=== PATIENT | male | born 1970 | race Caucasian/White ===

== ENCOUNTER 2020-02-10 07:55 | Emergency (ER) | payer OTHER ==
[~2020-02-10] VITALS: Ht 182.9 cm; Wt 183.7 kg
[~2020-02-10 07:55] MED LIST: Meclizine Hcl PO
--- OUTSIDE RECORDS SUMMARY | 2020-02-10 07:58 | XMS REPORT ---
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 Allergies, Adverse Reactions, Alerts This patient has no known allergies or adverse reactions. Medications This patient has no known medications. Results Test Description Test Time Test Comments Text Results Atomic Results Result Comments CT BRAIN WO [place] [id number] [place] [id number] Patient Name: EDI NUNEZ MR #: [id number] : 1970 Age/Sex: 46/M Req #: [id number] Adm Physician: Ordered by: EMELYN AKHTAR Report #: [id number] Location: ER Room/Bed: Procedure: [id number] CT/CT BRAIN WO Exam Date: 08/11/17 Exam Time: 1155 REPORT STATUS: Signed Exam: Head CT without contrast History: Dizziness Comparison studies: 05/26/2008. Technique: Axial images were obtained from the skull base to the vertex. Coronal and sagittal images reconstructed from the axial data. Intravenous contrast: None Findings: Scalp: No abnormalities. Bones: No fractures, blastic or lytic lesions. Brain sulci: Appropriate for age. Ventricles: Normal in size. No hydrocephalus. Incidental punctate hyperdensity regional to the foramen of Monro may represent incidental choroidal calcification or small colloid cyst and is unchanged. Extra-axial spaces: No masses, no fluid collection. Parenchyma: No abnormal densities. No masses, acute hemorrhage or acute or chronic cortical vascular insults. Sellar/suprasellar region: No abnormalities. Craniocervical junction: Patent foramen magnum. No Chiari one malformation. IMPRESSION: 1. No acute abnormalities. 2. No changes from the previous head CT of 05/26/2008. Signed by: Dr. Dudley Osorio M.D. on 08/11/2017 12:53 PM Dictated By: DUDLEY OSORIO MD 1253 Transcribed By: MAMI on 08/11/17 1253 COPY TO: EMELYN AKHTAR CT CHEST [address] [place] [address] Patient Name: EDI NUNEZ MR #: [id number] : 1970 Age/Sex: 46/M Req #: [id number] Adm Physician: Ordered by: ANATOLIY OQUENDO MD Report #: [id number] Location: ER Room/Bed: Procedure: [id number] CT/CT CHEST W Exam Date: 08/11/17 Exam Time: 1210 REPORT STATUS: Signed PROCEDURE: CT scan of the chest WITH intravenous contrast, using PE protocol. TECHNIQUE: The chest was scanned utilizing a multidetector helical scanner from the lung apex through the level of the adrenal glands after the IV administration of 150 cc of Isovue 370 with special concentration of the pulmonary arteries. Coronal and sagittal multiplanar reformations were obtained. COMPARISON: None. INDICATIONS: Shor tness of breath FINDINGS: Lines/tubes: None. Lungs and Airways: Exam is limited by mildly suboptimal contrast bolus timing. No filling defects in the main, right or left pulmonary arteries to the segmental level to suggest pulmonary embolism. No consolidation, pulmonary nodules, masses, or opacities. Airways are clear, without endobronchial lesions. Pleura: No effusion, or pneumothorax Heart and mediastinum: The heart is unremarkable. Heart size is borderline enlarged. No pericardial effusion. Mild atherosclerotic calcification of the coronary arteries, particularly the proximal LAD (series 2, image 58). Aorta is non-aneurysmal. The main pulmonary artery is normal in caliber. Lymph nodes: No mediastinal, hilar, or axillary adenopathy. Abdomen: Limited contrast-enhanced views of the upper abdomen show no abnormality within the visualized spleen, pancreas, or kidneys. Diffuse hepatic steatosis. Punctate radiopaque densities in the dependent portion of the gallbladder lumen likely represent small stones (series 2, image 127). The adrenal glands are unremarkable. Bones: No acute bony abnormalities. No lytic lesions. IMPRESSION: 1. Mildly suboptimal contrast bolus timing, however, no CT evidence of pulmonary embolism to the segmental level, within the limitations of the study. 2. Lungs are clear. 3. Hepatic steatosis. 4. Likely cholelithiasis, without CT evidence of cholecystitis. Raul Pruitt M.D. Dictated by: Raul Pruitt M.D. on 08/11/2017 at 12:58 Electronically approved by: Raul Pruitt M.D. on 08/11/2017 at 12:59 Dictated By: RAUL PRUITT MD 1253 Transcribed By: ALLEN on 08/11/17 1255 COPY TO: ANATOLIY OQUENDO MD
[2020-02-10 09:10] VITALS: BP 136/68
[2020-02-10 09:40] LABS: BASOPHILS # (AUTO) 0.1 (0.0-0.1); BASOPHILS % 0.5 % (0.0-1.0); EOSINOPHILS # (AUTO) 0.1 (0.0-0.4); EOSINOPHILS % 0.6 % (0.0-6.0); HEMATOCRIT 40.4 % (38.2-49.6); HEMOGLOBIN 13.1 g/dL (14.0-18.0); LYMPHOCYTES # (AUTO) 0.9 (1.0-3.2); MEAN CORPUSCULAR HEMOGLOBIN 29.4 pg (28-32); MEAN CORPUSCULAR HGB CONC 32.4 g/dL (31-35); MEAN CORPUSCULAR VOLUME 90.8 fL (81-99); MONOCYTES # (AUTO) 0.8 (0.2-0.8); MONOCYTES % 8.3 % (4.4-11.3); NEUTROPHILS # (AUTO) 7.4 (2.1-6.9); NEUTROPHILS % 80.1 % (38.7-80.0); PLATELET COUNT 193 x10e3/uL (140-360); RED BLOOD COUNT 4.45 x10e6/uL (4.3-5.7); RED CELL DISTRIBUTION WIDTH 14.4 % (11.7-14.4)
[2020-02-10] MEDS ORDERED: LORAZEPAM INJ 2 MG/ML VIAL IV ONE (09:45)
[2020-02-10 09:57] LABS: ALANINE AMINOTRANSFERASE 25 IU/L (0-55); ALBUMIN 3.4 g/dL (3.5-5.0); ALBUMIN/GLOBULIN RATIO 0.9 (0.8-2.0); ALKALINE PHOSPHATASE 77 IU/L (40-150); ANION GAP 11.4 mmol/L (8-16); BLOOD UREA NITROGEN 12 mg/dL (7-26); BUN/CREATININE RATIO 11 (6-25); CALCIUM 8.8 mg/dL (8.4-10.2); CARBON DIOXIDE 25 mmol/L (22-29); CHLORIDE 109 mmol/L (98-107); CREATININE, SERUM 1.06 mg/dL (0.72-1.25); EST GLOMERULAR FILTRATION RATE > 60 ML/MIN (60-); GLUCOSE 122 mg/dL (74-118); POTASSIUM 4.4 mmol/L (3.5-5.1); SODIUM 141 mmol/L (136-145)
--- NOTE | 2020-02-10 11:59 | NUR ---
REPORT GIVEN TO SABRINA SCHOFIELD AT [facility]
--- NOTE | 2020-02-10 12:01 | NUR ---
[facility] CALLED FOR TRANSPORT ETA 30-45 MIN AT 1204
[2020-02-10] MEDS ORDERED: IOPAMIDOL 370 MG/ML 200 ML INFUS..BTL INJ ONE (12:58)
[2020-02-10] MEDS ORDERED: SODIUM CHLORIDE 0.9% 100 ML ONE (12:58)
--- NOTE | 2020-02-10 13:11 | Diagnostic Imaging Report ---
History:Vision loss, Comparison studies:None Technique: Axial images were obtained from the thoracic inlet. 3-D reconstructions and maximum intensity projection reformats were performed. Coronal and sagittal images reconstructed from the axial data. Intravenous contrast: 100 cc of Omnipaque 300. Dose modulation, iterative reconstruction, and/or weight based adjustment of the mA/kV was utilized to reduce the radiation dose to as low as reasonably achievable. Findings: Beam hardening artifact due to patient body habitus and suboptimal bolus timing limits evaluation at the base of the neck. Percentage of stenosis will be based on the NASCET criteria Aortic arch and major vessels: Patent. No abnormalities. Common carotid arteries: Patent. No abnormalities. Right internal carotid artery: Patent. No acute abnormalities. Retropharyngeal course. Left internal carotid artery: Patent. No abnormalities. Right vertebral artery: Patent. No abnormalities. Left vertebral artery: Patent. No abnormalities. Basilar artery: Patent. No abnormalities. Posterior cerebral arteries: Patent. No abnormalities. Anatomical variants: Acom: Patent . Pcoms: Not visualized. Vertebral arteries: Col-dominant Degenerative moderate canal stenosis at C5-6 secondary to asymmetric right disc osteophyte complex. IMPRESSION: Cervical CTA: 1. No acute vascular abnormality Intracranial CTA: 1. No vascular abnormality Signed by: DR Ellis Oakes M.D. on 02/10/2020 1:08 PM
== END 2020-02-10 13:15 | disposition other institution (70) ==
LOC: ER 07:55
DX: H53.131 Sudden visual loss, right eye (principal); E66.01 Morbid (severe) obesity due to excess calories
CPT/HCPCS: 36415; 70496; 70498; 80053; 85025; 99284; J2060; J7050; Q9967

== ENCOUNTER 2020-02-15 19:38 | Inpatient (IN) | payer OTHER ==
[~2020-02-15] VITALS: Ht 180.3 cm; Wt 189.6 kg
[2020-02-15] MEDS ORDERED: KETOROLAC TROMETHAMINE 30 MG/ML VIAL IV STA (19:55)
[2020-02-15] MEDS ORDERED: HYDROCODONE/APAP 10MG-325MG TAB PO ONE (20:00)
[2020-02-15 20:15] LABS: BASOPHILS % 0.2 % (0.0-1.0); EOSINOPHILS # (AUTO) 0.1 (0.0-0.4); EOSINOPHILS % 0.6 % (0.0-6.0); HEMATOCRIT 42.5 % (38.2-49.6); HEMOGLOBIN 13.9 g/dL (14.0-18.0); LYMPHOCYTES # (AUTO) 1.2 (1.0-3.2); MEAN CORPUSCULAR HEMOGLOBIN 29.1 pg (28-32); MEAN CORPUSCULAR HGB CONC 32.7 g/dL (31-35); MEAN CORPUSCULAR VOLUME 89.1 fL (81-99); MONOCYTES # (AUTO) 1.7 (0.2-0.8); MONOCYTES % 10.1 % (4.4-11.3); NEUTROPHILS # (AUTO) 13.8 (2.1-6.9); NEUTROPHILS % 81.6 % (38.7-80.0); PLATELET COUNT 192 x10e3/uL (140-360); RED BLOOD COUNT 4.77 x10e6/uL (4.3-5.7); RED CELL DISTRIBUTION WIDTH 14.1 % (11.7-14.4)
[2020-02-15] MEDS ORDERED: CEFEPIME 2 GM/NS 0.9% 100 ML 100 ML IV STA (20:27)
[2020-02-15 20:28] LABS: INR 1.01; PARTIAL THROMBOPLASTIN TIME 31.1 seconds (23.8-35.5); PROTHROMBIN TIME 13.9 seconds (11.9-14.5)
[2020-02-15 20:31] LABS: ALANINE AMINOTRANSFERASE 29 IU/L (0-55); ALBUMIN 3.5 g/dL (3.5-5.0); ALBUMIN/GLOBULIN RATIO 0.8 (0.8-2.0); ALKALINE PHOSPHATASE 89 IU/L (40-150); ANION GAP 12.9 mmol/L (8-16); BLOOD UREA NITROGEN 13 mg/dL (7-26); BUN/CREATININE RATIO 11 (6-25); CALCIUM 9.4 mg/dL (8.4-10.2); CARBON DIOXIDE 27 mmol/L (22-29); CHLORIDE 101 mmol/L (98-107); CREATINE KINASE 86 IU/L (30-200); CREATININE, SERUM 1.21 mg/dL (0.72-1.25); EST GLOMERULAR FILTRATION RATE > 60 ML/MIN (60-); GLUCOSE 125 mg/dL (74-118); POTASSIUM 3.9 mmol/L (3.5-5.1); SODIUM 137 mmol/L (136-145)
--- NOTE | 2020-02-15 21:23 | Diagnostic Imaging Report ---
EXAMINATION: CHEST 2 VIEWS INDICATION: Back pain, hurts to breathe COMPARISON: None FINDINGS: TUBES and LINES: None. LUNGS: Normal lung volumes. Lungs are clear. No consolidations. PLEURA: No pleural effusion or pneumothorax. HEART AND MEDIASTINUM: The cardiomediastinal silhouette is unremarkable. BONES AND SOFT TISSUES: No acute osseous lesion. Soft tissues are unremarkable. UPPER ABDOMEN: No free air under the diaphragm. IMPRESSION: No acute thoracic radiographic abnormality. Signed by: Micah Harris DO on 02/15/2020 9:20 PM
[2020-02-15] MEDS ORDERED: HEPARIN SOD (PORCINE) 5,000 UNIT/ML VIAL IV ONE (21:45)
--- NOTE | 2020-02-15 21:47 | Diagnostic Imaging Report ---
EXAM: CT Chest WITH contrast (PE protocol) 02/15/2020 9:02 PM INDICATION: Short of breath COMPARISON: Same day chest x-ray TECHNIQUE: Chest was scanned utilizing a multidetector helical scanner from the lung apex through the level of the adrenal glands with administration of IV contrast. Coronal and sagittal reformations were obtained. Pulmonary embolism protocol was performed with special attention on the pulmonary arteries. IV CONTRAST: 100 mL of Isovue 370 COMPLICATIONS: None RADIATION DOSE: Total DLP: 547 mGy*cm Estimated effective dose: (DLP x 0.014 x size factor) mSv CTDIvol has been reviewed. It is below the limits set by the Radiation Protocol Committee (RPC). Dose modulation, iterative reconstruction, and/or weight based adjustment of the mA/kV was utilized to reduce the radiation dose to as low as reasonably achievable. FINDINGS: LINES/ TUBES: None. LUNGS AND AIRWAYS: Filling defects within the right main and bilateral lobar and segmental pulmonary arteries. Groundglass haziness in the posterobasilar right lower lobe. Airways are normal. PLEURA: The pleural spaces are clear. HEART AND MEDIASTINUM: The thyroid gland is normal. No mediastinal, hilar or axillary lymphadenopathy. The heart is mildly enlarged. There is no pericardial effusion. Left anterior descending coronary calcifications. UPPER ABDOMEN: The liver is enlarged and hypodense. BONES: There are degenerative changes in the thoracic spine. SOFT TISSUES: Unremarkable. IMPRESSION: Shower pulmonary emboli including in the right main pulmonary artery and bilateral lobar and segmental pulmonary arteries. Groundglass opacity in the posterobasilar right lower lobe is likely pulmonary infarct. These findings were discussed with Dr. Bhatia at 9:39 PM on 02/15/[address] Harris via telephone. Mild cardiomegaly and coronary artery calcific atherosclerosis. Hepatomegaly with hepatic steatosis. Signed by: Micah Harris DO on 02/15/2020 9:44 PM
[2020-02-15] MEDS ORDERED: HEPARIN 25,000 UNIT DRIP IV ONE (21:58)
[2020-02-15] MEDS ORDERED: ONDANSETRON HCL INJ 2MG/ML 2ML 2 MG/ML VIAL IV PRN (22:00)
[2020-02-15] MEDS ORDERED: DEXTROSE 50% SYRINGE 50 ML IV PRN (22:00)
[2020-02-15] MEDS ORDERED: SODIUM CHLORIDE FLUSH 10 ML SYR INJ PRN (22:00)
[2020-02-15] MEDS: HEPARIN 25,000 UNIT 1,500 UNIT in DEXTROSE 5% 250ML 250 ML IV SCH (22:09)
[2020-02-15 22:53] VITALS: BP 122/60
[2020-02-15 23:16] VITALS: BP 122/60
[2020-02-15 23:24] VITALS: BP 122/60
[2020-02-16] VITALS (7 sets, daily range): BP systolic 131–159; BP diastolic 69–76
[2020-02-16] MEDS ORDERED: CLOPIDOGREL75 MG PO (00:11)
[2020-02-16] MEDS ORDERED: DIOVAN80 MG PO (00:11)
[2020-02-16] MEDS ORDERED: ATORVASTATIN CA10 MG PO (00:11)
[2020-02-16] MEDS ORDERED: NIFEDIPINE10 MG PO (00:11)
[2020-02-16] MEDS ORDERED: ASPIR 8181 MG PO (00:11)
[2020-02-16] MEDS ORDERED: NIFEDIPINE ER60 MG PO (02:08)
[2020-02-16 04:26] LABS: BASOPHILS # (AUTO) 0.1 (0.0-0.1); BASOPHILS % 0.4 % (0.0-1.0); EOSINOPHILS # (AUTO) 0.2 (0.0-0.4); EOSINOPHILS % 1.7 % (0.0-6.0); HEMOGLOBIN 12.4 g/dL (14.0-18.0); LYMPHOCYTES # (AUTO) 1.7 (1.0-3.2); LYMPHOCYTES % 12.4 % (18.0-39.1); MEAN CORPUSCULAR HEMOGLOBIN 29.5 pg (28-32); MEAN CORPUSCULAR HGB CONC 32.6 g/dL (31-35); MEAN CORPUSCULAR VOLUME 90.3 fL (81-99); MONOCYTES # (AUTO) 1.4 (0.2-0.8); MONOCYTES % 10.4 % (4.4-11.3); NEUTROPHILS # (AUTO) 10.2 (2.1-6.9); NEUTROPHILS % 74.7 % (38.7-80.0); PLATELET COUNT 160 x10e3/uL (140-360); RED BLOOD COUNT 4.21 x10e6/uL (4.3-5.7); RED CELL DISTRIBUTION WIDTH 14.4 % (11.7-14.4)
[2020-02-16 04:48] LABS: ALANINE AMINOTRANSFERASE 26 IU/L (0-55); ALBUMIN 3.1 g/dL (3.5-5.0); ALBUMIN/GLOBULIN RATIO 0.8 (0.8-2.0); ALKALINE PHOSPHATASE 77 IU/L (40-150); ANION GAP 8.8 mmol/L (8-16); BLOOD UREA NITROGEN 16 mg/dL (7-26); BUN/CREATININE RATIO 13 (6-25); CARBON DIOXIDE 26 mmol/L (22-29); CHLORIDE 104 mmol/L (98-107); CREATININE, SERUM 1.19 mg/dL (0.72-1.25); EST GLOMERULAR FILTRATION RATE > 60 ML/MIN (60-); GLUCOSE 113 mg/dL (74-118); POTASSIUM 3.8 mmol/L (3.5-5.1); SODIUM 135 mmol/L (136-145)
[2020-02-16 04:56] LABS: CREATINE KINASE MB 1.9 ng/mL (0-5.0)
[2020-02-16] MEDS ORDERED: IOPAMIDOL 370 MG/ML 200 ML INFUS..BTL INJ ONE (06:58)
[2020-02-16] MEDS ORDERED: SODIUM CHLORIDE 0.9% 50ML 50 ML ONE (06:58)
[2020-02-16 07:07] LABS: CLARITY,URINE SL CLOUDY (CLEAR); COLOR,URINE ORANGE (YELLOW); KETONES,URINE NEGATIVE (NEGATIVE); LEUKOCYTE ESTERASE ,URINE NEGATIVE (NEGATIVE); NITRITE,URINE NEGATIVE (NEGATIVE); PROTEIN,URINE DIPSTICK 1+ (NEGATIVE); URINE UROBILINOGEN 0.2 mg/dL (0.2 - 1)
[2020-02-16 07:08] LABS: BILIRUBIN,URINE NEGATIVE (NEGATIVE)
[2020-02-16 07:12] LABS: BACTERIA,URINE RARE /HPF; EPITHELIAL CELLS,URINE FEW /LPF; RBC,URINE 21-50 /HPF (0-5); WBC,URINE (MAN) 21-50 /HPF (0-5)
[2020-02-16] MEDS ORDERED: INSULIN REGULAR, HUMAN 100 UNIT/1 ML 3ML VIAL SQ SCH (07:30)
[2020-02-16] MEDS ORDERED: CLONIDINE HCL 0.1 MG TAB PO PRN (12:30)
[2020-02-16] MEDS ORDERED: ONDANSETRON HCL 4 MG ORAL DISINTEGRATING TAB PO PRN (12:45)
[2020-02-16] MEDS: HEPARIN 25,000 UNIT 1,500 UNIT in DEXTROSE 5% 250ML 250 ML IV SCH (13:31)
[2020-02-16] MEDS: WARFARIN SOD 5 MG TAB PO SCH (16:41)
[2020-02-16] MEDS ORDERED: ATORVASTATIN 40 MG TAB PO SCH (21:00)
[2020-02-16] MEDS: HYDROCODONE/APAP 10MG-325MG TAB PO PRN (21:44)
[2020-02-17] VITALS (8 sets, daily range): BP systolic 137–163; BP diastolic 68–79
[2020-02-17 06:17] LABS: BASOPHILS % 0.3 % (0.0-1.0); EOSINOPHILS # (AUTO) 0.2 (0.0-0.4); EOSINOPHILS % 1.2 % (0.0-6.0); HEMATOCRIT 38.1 % (38.2-49.6); HEMOGLOBIN 12.5 g/dL (14.0-18.0); LYMPHOCYTES # (AUTO) 1.2 (1.0-3.2); LYMPHOCYTES % 9.4 % (18.0-39.1); MEAN CORPUSCULAR HEMOGLOBIN 29.8 pg (28-32); MEAN CORPUSCULAR HGB CONC 32.8 g/dL (31-35); MEAN CORPUSCULAR VOLUME 90.7 fL (81-99); MONOCYTES # (AUTO) 1.7 (0.2-0.8); MONOCYTES % 13.3 % (4.4-11.3); NEUTROPHILS # (AUTO) 9.8 (2.1-6.9); NEUTROPHILS % 75.2 % (38.7-80.0); PLATELET COUNT 167 x10e3/uL (140-360); RED CELL DISTRIBUTION WIDTH 14.4 % (11.7-14.4)
[2020-02-17 06:43] LABS: CHOL/HDL RATIO 2.5 (3.9-4.7)
[2020-02-17] MEDS: HEPARIN 25,000 UNIT 1,500 UNIT in DEXTROSE 5% 250ML 250 ML IV SCH (07:05)
[2020-02-17] MEDS ORDERED: HEPARIN 25,000 UNIT DRIP IV ONE (07:09)
[2020-02-17] MEDS: HYDROCODONE/APAP 10MG-325MG TAB PO PRN ×4 (08:43→21:55)
[2020-02-17] MEDS ORDERED: VALSARTAN 80 MG TAB PO SCH (09:45)
[2020-02-17] MEDS ORDERED: LACTULOSE SYRUP 20 GM/30 ML UDC PO NR (14:30)
[2020-02-17] MEDS ORDERED: DOCUSATE SODIUM LIQD 100 MG/10 ML UDC NG SCH (17:00)
[2020-02-17] MEDS: WARFARIN SOD 5 MG TAB PO SCH (17:28)
[2020-02-17] MEDS: VALSARTAN 80 MG TAB PO SCH (17:28)
[2020-02-17] MEDS: ATORVASTATIN 20 MG TAB PO SCH (20:41)
[2020-02-18] VITALS (9 sets, daily range): BP systolic 94–140; BP diastolic 58–77
[2020-02-18] MEDS ORDERED: HEPARIN 25,000 UNIT DRIP IV ONE (00:26)
[2020-02-18] MEDS: HEPARIN 25,000 UNIT 1,500 UNIT in DEXTROSE 5% 250ML 250 ML IV SCH ×2 (00:55→21:45)
[2020-02-18 06:22] LABS: INR 1.22; PROTHROMBIN TIME 16.2 seconds (11.9-14.5)
[2020-02-18] MEDS: VALSARTAN 80 MG TAB PO SCH (09:26)
[2020-02-18] MEDS: DOCUSATE SODIUM 100 MG CAP PO SCH ×2 (10:23→17:54)
[2020-02-18] MEDS ORDERED: WARFARIN SOD 2.5 MG TAB PO SCH (17:00)
[2020-02-18] MEDS ORDERED: METOPROLOL TARTRATE 25 MG TAB PO SCH (18:00)
[2020-02-18] MEDS: METOPROLOL TARTRATE 25 MG TAB PO SCH (18:14)
[2020-02-18] MEDS ORDERED: ACETAMINOPHEN 325 MG TAB PO PRN (20:30)
[2020-02-18] MEDS: ATORVASTATIN 20 MG TAB PO SCH (20:55)
[2020-02-18 21:17] LABS: BASOPHILS # (AUTO) 0.1 (0.0-0.1); BASOPHILS % 0.3 % (0.0-1.0); EOSINOPHILS % 0.1 % (0.0-6.0); HEMATOCRIT 37.8 % (38.2-49.6); HEMOGLOBIN 12.7 g/dL (14.0-18.0); LYMPHOCYTES # (AUTO) 1.5 (1.0-3.2); LYMPHOCYTES % 7.5 % (18.0-39.1); MEAN CORPUSCULAR HEMOGLOBIN 29.7 pg (28-32); MEAN CORPUSCULAR HGB CONC 33.6 g/dL (31-35); MEAN CORPUSCULAR VOLUME 88.5 fL (81-99); MONOCYTES # (AUTO) 2.2 (0.2-0.8); MONOCYTES % 11.1 % (4.4-11.3); NEUTROPHILS # (AUTO) 15.8 (2.1-6.9); PLATELET COUNT 147 x10e3/uL (140-360); RED BLOOD COUNT 4.27 x10e6/uL (4.3-5.7); RED CELL DISTRIBUTION WIDTH 14.5 % (11.7-14.4)
[2020-02-18 21:27] LABS: INR 1.38; PROTHROMBIN TIME 17.9 seconds (11.9-14.5)
[2020-02-18 21:29] LABS: PARTIAL THROMBOPLASTIN TIME 81.2 seconds (23.8-35.5)
[2020-02-18 21:34] LABS: ANION GAP 12.2 mmol/L (8-16); CREATININE, SERUM 1.55 mg/dL (0.72-1.25); POTASSIUM 4.2 mmol/L (3.5-5.1)
--- NOTE | 2020-02-18 21:35 | Diagnostic Imaging Report ---
EXAMINATION: CHEST 2 VIEWS INDICATION: SOB/PE/PULMONARY INFARCT COMPARISON: CT Chest 02/15/2020 and Chest radiograph 02/15/2020. FINDINGS: TUBES and LINES: None. LUNGS: Lungs are moderately inflated. Central vascular crowding. Patchy basilar opacity in the right lung. No new consolidation. PLEURA: No pleural effusion or pneumothorax. HEART AND MEDIASTINUM: The cardiomediastinal silhouette is unremarkable. BONES AND SOFT TISSUES: No acute osseous lesion. Soft tissues are unremarkable. UPPER ABDOMEN: No free air under the diaphragm. IMPRESSION: Patchy right basilar opacity, corresponding to pulmonary infarct noted on prior CT. No new consolidation. Signed by: Dr. Ry Nesbitt MD on 02/18/2020 9:32 PM
[2020-02-18] MEDS: IPRATROPIUM BROMIDE 0.02% 2.5 ML NEB NEB SCH (23:25)
[2020-02-19] MEDS: IPRATROPIUM BROMIDE 0.02% 2.5 ML NEB NEB SCH ×4 (03:20→15:51)
[2020-02-19 05:04] VITALS: BP 102/78
[2020-02-19 05:58] LABS: INR 1.55; PROTHROMBIN TIME 19.6 seconds (11.9-14.5)
[2020-02-19 06:00] LABS: PARTIAL THROMBOPLASTIN TIME 85.9 seconds (23.8-35.5)
[2020-02-19] MEDS: ASPIRIN 81 MG CHEW TAB PO SCH (08:13)
[2020-02-19] MEDS: DOCUSATE SODIUM 100 MG CAP PO SCH ×2 (08:13→16:57)
[2020-02-19 08:14] VITALS: BP 126/68
[2020-02-19] MEDS: METOPROLOL TARTRATE 25 MG TAB PO SCH ×2 (08:14→16:59)
[2020-02-19 08:17] VITALS: BP 126/68
[2020-02-19] MEDS ORDERED: VALSARTAN 80 MG TAB PO SCH (09:00)
[2020-02-19 09:47] LABS: BASOPHILS # (AUTO) 0.1 (0.0-0.1); BASOPHILS % 0.3 % (0.0-1.0); EOSINOPHILS % 0.2 % (0.0-6.0); HEMATOCRIT 37.9 % (38.2-49.6); HEMOGLOBIN 12.6 g/dL (14.0-18.0); LYMPHOCYTES # (AUTO) 1.9 (1.0-3.2); LYMPHOCYTES % 11.1 % (18.0-39.1); MEAN CORPUSCULAR HGB CONC 33.2 g/dL (31-35); MEAN CORPUSCULAR VOLUME 90.2 fL (81-99); MONOCYTES # (AUTO) 1.9 (0.2-0.8); MONOCYTES % 11.3 % (4.4-11.3); NEUTROPHILS # (AUTO) 12.8 (2.1-6.9); NEUTROPHILS % 76.1 % (38.7-80.0); PLATELET COUNT 132 x10e3/uL (140-360); RED CELL DISTRIBUTION WIDTH 14.7 % (11.7-14.4)
[2020-02-19 09:57] LABS: ANION GAP 11.1 mmol/L (8-16); CREATININE, SERUM 1.61 mg/dL (0.72-1.25); POTASSIUM 4.1 mmol/L (3.5-5.1)
[2020-02-19 10:09] LABS: ANISOCYTOSIS SLIGHT; EOSINOPHILS % (MANUAL) 2 % (0-7); LYMPHOCYTES % (MANUAL) 6 % (19-48); MONOCYTES % (MANUAL) 6 % (3.4-9.0); NEUTROPHILS % (MANUAL) 86 % (40-74); PLATELET ESTIMATE ADEQUATE; PLATELET MORPHOLOGY COMMENT NORMAL; RBC MORPHOLOGY COMMENT NORMAL
--- NOTE | 2020-02-19 11:16 | Consultation ---
DATE OF CONSULTATION: Cardiac Consultation REASON FOR CONSULTATION: Elevated troponin. HISTORY OF PRESENT ILLNESS: This is a 49-year-old gentleman, who was in his usual status of health still [facility] on February 09 or so. The patient came to this institution with loss of peripheral vision of the left eye. He was sent over to [facility]. As per the patient, he got CT, MRI, echo, carotid, etc., and they were all negative. The patient was dismissed home with a diagnosis of hypercholesterolemia, hypertension, and morbid obesity. Of note, the patient does have morbid obesity and sleep apnea. He was dismissed home on aspirin, Plavix, Lipitor, nifedipine 60 mg a day, and Diovan 80 mg a day. He was dismissed home for the patient to be presented to this institution on the . At that time, he was having definitely pleuritic chest pain and shortness of breath. CT scan revealed the presence of shower pulmonary emboli in the right main pulmonary artery and bilateral lobe and segmental pulmonary artery. The patient was seen and evaluated by Dr. Hernandez and Pulmonary consultation was obtained. The patient is started on heparin and warfarin. His troponin was elevated at 1.3, so cardiac consultation is obtained. I visited with the patient, who is having shortness of breath and pleuritic chest pain. He is not in any respiratory distress. He denied having any anginal symptoms before. He is morbidly obese and known to be on CPAP. The diagnosis of hypertension and hyperlipidemia are new to him and the medication just started recently. His peripheral vision is better. The patient really spend long time in bed. He does not ambulate. With this acute illness, he was in bed all the time. So this could be the need and the cause for his pulmonary emboli. There are no prior history of embolism or hypercoagulability. 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 His activity is usually limited. 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 He is physically inactive. He does have easy fatigability and shortness of breath, which is going on for some time till the acute illness was worsened and he had pleuritic chest pain. REVIEW OF SYSTEMS: GENERAL: No fever. No chills. No weight loss. No weight gain. HEENT: Acute illness recently of loss of right peripheral vision. PULMONARY AND CARDIAC: As per acute illness. GI: No hematemesis. No melena. No nausea. No vomiting. : No hematuria. No dysuria. MUSCULOSKELETAL: Occasional back pain, knee pain. NEUROLOGICAL: Only the eye problem. No localized deficit. ENDOCRINE: No history of diabetes mellitus. No polyuria. No polydipsia. HEMATOLOGY: No prior coagulopathy. No bleeding. SKIN: No rashes. Connective tissue, no symptoms to suggest connective tissue disease. 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 He is single. He is nonsmoker and non-alcohol drinker. HOME MEDICATIONS: Just recently started aspirin, Plavix, Lipitor, nifedipine 60 mg a day, and Diovan 80 mg a day. ALLERGIES: CIPRO, TETRACYCLINE, PENICILLIN. PAST MEDICAL HISTORY: 1. Morbid obesity, on CPAP. 2. Hypertension and hyperlipidemia, recently diagnosed. 3. Yesterday diagnosed with CVA. Workup is negative including extensive workup. FAMILY HISTORY: Father of homicide in his 40s. Mother of overdose. No brother. Only one half-sister, who got Nicko disease. No children. PHYSICAL EXAMINATION: GENERAL: Morbidly obese, in no acute distress. VITAL SIGNS: Height of 5 feet 11 inches, weight of 418 pounds. Blood pressure 120/70, heart rate of 90, respiratory rate of 18, and temperature of 96 Fahrenheit. HEENT: Pupils are reactive. NECK: No elevation of jugular venous pulsation. No bruit. CHEST: Clear to auscultation and percussion. HEART: Distant heart sounds. Unable to palpate the heart. ABDOMEN: Obese. No organomegaly. EXTREMITIES: No cyanosis. No clubbing. No edema. NEUROLOGIC: Awake, alert, and oriented. Able to move all extremities. LABORATORY DATA: BUN of 19 and creatinine of 1.55. White blood cell count of 16.8, hemoglobin of 12.6, hematocrit 37%, and platelet count of 130,000. Triglycerides of 70, cholesterol of 96, HDL of 38, and LDL of 49. BNP of 24. Troponin of 1.3. EKG; normal sinus rhythm, nonspecific EKG changes. BNP of only 24. CT chest showing pulmonary emboli as described above. IMPRESSION AND PLAN: 1. Acute pulmonary embolism in patient nonambulatory. Agree with the treatment with anticoagulation. 2. We will do venous Doppler to look for a source. 3. Morbid obesity. 4. Recent cerebrovascular accident, questionable etiology. 5. The patient's current blood pressure is very good on no medication. 6. Hyperlipidemia, on medication. Cholesterol level is good. RECOMMENDATIONS: Continuation of current medication. The patient informed in the future he should have MAAME for the completeness of the workup and we will leave it up to his student counselor in the future if you want to do thrombophilia profile, although the presentation are more consistent with his morbid obesity and decreased activity as a cause for his presentation. Regarding his troponin is most likely secondary to PE. Again in the future, probably a stress test will be beneficial, but for the time being, we will continue medical therapy. Questions are answered. The patient's condition is explained. The patient attended and it was long visit explaining and answering his questions and calming his fears. Of course, MAAME needs to be done because of unknown cause of his CVA and possible his CVA is secondary to DVT and embolic phenomena. MD NIRAJ Bauer/LAUREEN /[id number]
[2020-02-19 12:00] VITALS: BP 128/77
[2020-02-19 16:35] VITALS: BP 123/67
[2020-02-19] MEDS ORDERED: WARFARIN SOD 5 MG TAB PO SCH ×2 (17:00)
[2020-02-19 17:13] LABS: BASOPHILS # (AUTO) 0.1 (0.0-0.1); BASOPHILS % 0.3 % (0.0-1.0); EOSINOPHILS # (AUTO) 0.1 (0.0-0.4); EOSINOPHILS % 0.3 % (0.0-6.0); HEMATOCRIT 38.1 % (38.2-49.6); HEMOGLOBIN 12.7 g/dL (14.0-18.0); LYMPHOCYTES # (AUTO) 1.6 (1.0-3.2); LYMPHOCYTES % 8.5 % (18.0-39.1); MEAN CORPUSCULAR HEMOGLOBIN 29.6 pg (28-32); MEAN CORPUSCULAR HGB CONC 33.3 g/dL (31-35); MEAN CORPUSCULAR VOLUME 88.8 fL (81-99); MONOCYTES # (AUTO) 2.1 (0.2-0.8); MONOCYTES % 11.3 % (4.4-11.3); NEUTROPHILS # (AUTO) 14.7 (2.1-6.9); NEUTROPHILS % 78.7 % (38.7-80.0); PLATELET COUNT 150 x10e3/uL (140-360); RED BLOOD COUNT 4.29 x10e6/uL (4.3-5.7); RED CELL DISTRIBUTION WIDTH 14.6 % (11.7-14.4)
[2020-02-19] MEDS ORDERED: IPRATROPIUM BROMIDE 0.02% 2.5 ML NEB NEB PRN (17:30)
--- NOTE | 2020-02-19 19:57 | Consultation ---
DATE OF CONSULTATION: Pulmonary Consultation. HISTORY OF PRESENT ILLNESS: Mr. March is a 49-year-old white man with a history of morbid obesity, he is 418 pounds, his BMI is 58, and obstructive sleep apnea up until around [place]. Did not have any other significant medical problems. He presented around [facility] with right peripheral vision field impairment and was transferred from here to [facility] at [facility] for evaluation. He had testing including cardiac CT, telemetry, other imaging. There was maybe thought that he had paroxysmal atrial fibrillation and was ultimately discharged with aspirin, Plavix, Lipitor, nifedipine, and Diovan. About 2 days after discharge, the patient began to have right-sided what he thought was back pain that was pleuritic in nature. He had some associated shortness of breath. Although he does state that the shortness of breath began around the time of discharge from [facility], in that he just felt fatigued and somewhat dyspneic and thought was due to him being lying around and hospitalized. Because it got worse, he re-presented to the emergency room. He was evaluated, imaged and he had a CT of the chest that I reviewed that showed bilateral filling defects, right greater than left, consistent with pulmonary emboli. He had a hazy right basilar opacity that was peripheral and wedge-shaped, consistent with an infarct, but no effusions. Chest x-ray also done at that time showed vague right lower zone opacity as well. Labs were reviewed. His creatinine was normal. His BNP was 120. He had 2 negative troponins. Because of his weight, he was treated with IV heparin and started on Coumadin and he was improving. Yesterday, he became tachycardic and had some low-grade fever, had Pulmonary consultation. His x-ray was essentially unchanged. However, he did have a bump in his troponins from previously normal to 1.32 and now it is down to 0.66. PAST MEDICAL HISTORY: Aside from morbid obesity, sleep apnea, otherwise negative. PAST SURGICAL HISTORY: None. SOCIAL HISTORY: Negative for tobacco, alcohol, or drug use. FAMILY HISTORY: Unremarkable. Both his parents in their 40s of nonheritable diseases. Mother had apparently an overdose and father was murdered. PHYSICAL EXAMINATION: VITAL SIGNS: He is afebrile currently, although his temperature last night was 100.7. Prior to that, he had been afebrile. Heart rate in the 80s to 90s currently, but last night he did get tachycardic to around 130. Blood pressures over the and have been well controlled and no higher than 145 or 141 systolic. He did have 150s and 160s from the through the intermittently. Oxygen saturation is anywhere between 91% and 100%. Most recently 94%-95%. GENERAL APPEARANCE: He is morbidly obese appearing white man awake, alert, sitting in the edge of bed, not distressed, pleasant. HEENT: Head is normocephalic, atraumatic. Pupils are round and reactive. Mucous membranes moist. CHEST: Clear to auscultation. HEART: Regular rate and rhythm. No murmurs, rubs, gallops. ABDOMEN: Obese, nontender, soft. EXTREMITIES: Have no cyanosis, clubbing. There is some trace nonpitting edema. NEUROLOGICAL: He is awake, alert, grossly nonfocal. LABORATORY DATA: Labs have been reviewed as described above. Again, his imaging has been reviewed as described above. ASSESSMENT: 1. Pulmonary embolism with infarct. 2. Elevated troponin, possibly non ST-segment elevation myocardial infarction. Could his troponins just be coming down. 3. Obstructive sleep apnea. 4. Morbid obesity. 5. Possible hypercoagulable state. 6. Possible small embolic stroke with visual field defect. RECOMMENDATIONS AND PLAN: We will continue anticoagulation, with bridging of the Coumadin and a goal INR of 2 to 3. Agree with aspirin, beta babatunde. Consultation with Cardiology. We will continue his CPAP. Also repeat a urinalysis to see if he still has hematuria. Case was discussed with the attending physician. Juan PabloMD ODALIS Da Silva/LAUREEN /[id number]
[2020-02-19 20:00] VITALS: BP 113/72
[2020-02-19] MEDS: ATORVASTATIN 20 MG TAB PO SCH (21:43)
[2020-02-19] MEDS: HEPARIN 25,000 UNIT 1,500 UNIT in DEXTROSE 5% 250ML 250 ML IV SCH (21:45)
[2020-02-20] VITALS (9 sets, daily range): BP systolic 89–139; BP diastolic 53–82
[2020-02-20] MEDS: HEPARIN 25,000 UNIT 1,500 UNIT in DEXTROSE 5% 250ML 250 ML IV SCH ×3 (04:02→20:00)
[2020-02-20] MEDS ORDERED: HEPARIN 25,000 UNIT DRIP IV ONE ×2 (04:04→19:49)
[2020-02-20 04:42] LABS: CLARITY,URINE CLEAR (CLEAR); COLOR,URINE YELLOW (YELLOW); LEUKOCYTE ESTERASE ,URINE NEGATIVE (NEGATIVE)
[2020-02-20 04:43] LABS: BILIRUBIN,URINE NEGATIVE (NEGATIVE); KETONES,URINE NEGATIVE (NEGATIVE); NITRITE,URINE NEGATIVE (NEGATIVE); PROTEIN,URINE DIPSTICK NEGATIVE (NEGATIVE); URINE UROBILINOGEN 0.2 mg/dL (0.2 - 1)
[2020-02-20 04:50] LABS: BACTERIA,URINE MODERATE /HPF
[2020-02-20 04:51] LABS: EPITHELIAL CELLS,URINE FEW /LPF; MUCUS,URINE FEW (RARE); RBC,URINE 21-50 /HPF (0-5)
[2020-02-20 06:10] LABS: BASOPHILS # (AUTO) 0.1 (0.0-0.1); BASOPHILS % 0.4 % (0.0-1.0); EOSINOPHILS # (AUTO) 0.1 (0.0-0.4); EOSINOPHILS % 0.4 % (0.0-6.0); HEMATOCRIT 39.4 % (38.2-49.6); HEMOGLOBIN 12.9 g/dL (14.0-18.0); LYMPHOCYTES # (AUTO) 1.5 (1.0-3.2); LYMPHOCYTES % 8.8 % (18.0-39.1); MEAN CORPUSCULAR HEMOGLOBIN 29.1 pg (28-32); MEAN CORPUSCULAR HGB CONC 32.7 g/dL (31-35); MEAN CORPUSCULAR VOLUME 88.7 fL (81-99); MONOCYTES % 12.1 % (4.4-11.3); NEUTROPHILS # (AUTO) 12.8 (2.1-6.9); NEUTROPHILS % 77.4 % (38.7-80.0); PLATELET COUNT 143 x10e3/uL (140-360); RED BLOOD COUNT 4.44 x10e6/uL (4.3-5.7); RED CELL DISTRIBUTION WIDTH 14.6 % (11.7-14.4)
[2020-02-20 06:50] LABS: CALCIUM 9.2 mg/dL (8.4-10.2); CREATININE, SERUM 1.46 mg/dL (0.72-1.25)
[2020-02-20 07:05] LABS: INR 2.03; PROTHROMBIN TIME 24.4 seconds (11.9-14.5)
[2020-02-20 07:06] LABS: PARTIAL THROMBOPLASTIN TIME 90.9 seconds (23.8-35.5)
[2020-02-20 07:30] LABS: ANISOCYTOSIS SLIGHT; EOSINOPHILS % (MANUAL) 2 % (0-7); LYMPHOCYTES % (MANUAL) 7 % (19-48); MONOCYTES % (MANUAL) 14 % (3.4-9.0); NEUTROPHILS % (MANUAL) 77 % (40-74); PLATELET ESTIMATE ADEQUATE; RBC MORPHOLOGY COMMENT NORMAL
[2020-02-20 07:31] LABS: PLATELET MORPHOLOGY COMMENT FEW GIANT
[2020-02-20] MEDS: METOPROLOL TARTRATE 25 MG TAB PO SCH ×2 (09:16→16:35)
[2020-02-20] MEDS: DOCUSATE SODIUM 100 MG CAP PO SCH ×2 (09:16→16:34)
[2020-02-20] MEDS: ASPIRIN 81 MG CHEW TAB PO SCH (09:16)
[2020-02-20 10:24] LABS: FIBRINOGEN LABCORP 768 mg/dL (193-507)
[2020-02-20] MEDS ORDERED: WARFARIN SOD 2.5 MG TAB PO SCH (17:00)
[2020-02-20] MEDS: ATORVASTATIN 20 MG TAB PO SCH (20:09)
[2020-02-21] VITALS (10 sets, daily range): BP systolic 102–141; BP diastolic 59–91
[2020-02-21 00:30] LABS: PARTIAL THROMBOPLASTIN TIME 96.2 seconds (23.8-35.5)
[2020-02-21] MEDS: HEPARIN 25,000 UNIT 1,500 UNIT in DEXTROSE 5% 250ML 250 ML IV SCH (00:50)
[2020-02-21 01:27] LABS: ALBUMIN 2.5 g/dL (3.5-5.0); ALBUMIN/GLOBULIN RATIO 0.5 (0.8-2.0); CALCIUM 8.9 mg/dL (8.4-10.2); CREATININE, SERUM 1.27 mg/dL (0.72-1.25)
[2020-02-21 01:51] LABS: INR 2.37; PROTHROMBIN TIME 27.7 seconds (11.9-14.5)
[2020-02-21 06:13] LABS: BASOPHILS # (AUTO) 0.1 (0.0-0.1); BASOPHILS % 0.4 % (0.0-1.0); EOSINOPHILS # (AUTO) 0.1 (0.0-0.4); EOSINOPHILS % 0.4 % (0.0-6.0); HEMATOCRIT 34.1 % (38.2-49.6); HEMOGLOBIN 11.1 g/dL (14.0-18.0); LYMPHOCYTES # (AUTO) 1.3 (1.0-3.2); LYMPHOCYTES % 9.7 % (18.0-39.1); MEAN CORPUSCULAR HGB CONC 32.6 g/dL (31-35); MONOCYTES # (AUTO) 1.6 (0.2-0.8); MONOCYTES % 11.3 % (4.4-11.3); NEUTROPHILS # (AUTO) 10.6 (2.1-6.9); NEUTROPHILS % 77.3 % (38.7-80.0); PLATELET COUNT 149 x10e3/uL (140-360); RED BLOOD COUNT 3.83 x10e6/uL (4.3-5.7); RED CELL DISTRIBUTION WIDTH 14.8 % (11.7-14.4)
[2020-02-21 06:31] LABS: ANION GAP 10.8 mmol/L (8-16); BLOOD UREA NITROGEN 21 mg/dL (7-26); BUN/CREATININE RATIO 17 (6-25); CALCIUM 8.7 mg/dL (8.4-10.2); CARBON DIOXIDE 25 mmol/L (22-29); CHLORIDE 102 mmol/L (98-107); CREATININE, SERUM 1.24 mg/dL (0.72-1.25); EST GLOMERULAR FILTRATION RATE > 60 ML/MIN (60-); GLUCOSE 121 mg/dL (74-118); POTASSIUM 3.8 mmol/L (3.5-5.1); SODIUM 134 mmol/L (136-145)
[2020-02-21 07:15] LABS: INR 2.34; PROTHROMBIN TIME 27.4 seconds (11.9-14.5)
[2020-02-21 07:48] LABS: FREE THYROXINE INDEX 2.5976 (1.4-3.8); THYROID STIMULATING HORMONE 3.297 uIU/mL (0.350-4.940)
[2020-02-21] MEDS: DOCUSATE SODIUM 100 MG CAP PO SCH ×2 (08:45→17:00)
[2020-02-21] MEDS: ASPIRIN 81 MG CHEW TAB PO SCH (08:45)
[2020-02-21] MEDS: METOPROLOL TARTRATE 25 MG TAB PO SCH ×2 (08:46→18:09)
[2020-02-21 12:10] LABS: LYMPHOCYTES % (MANUAL) 9 % (19-48); MONOCYTES % (MANUAL) 13 % (3.4-9.0); NEUTROPHILS % (MANUAL) 77 % (40-74)
[2020-02-21 12:11] LABS: ANISOCYTOSIS SLIGHT; PLATELET ESTIMATE ADEQUATE; PLATELET MORPHOLOGY COMMENT RARE EDTA CLUMPING; RBC MORPHOLOGY COMMENT NORMAL
[2020-02-21] MEDS ORDERED: FUROSEMIDE INJ 10 MG/ML 4 ML VIAL IV ONE (13:40)
[2020-02-21] MEDS ORDERED: HEPARIN 25,000 UNIT 1,500 UNIT in DEXTROSE 5% 250ML 250 ML IV SCH (15:45)
[2020-02-21] MEDS ORDERED: WARFARIN SOD 5 MG TAB PO SCH (17:00)
[2020-02-21] MEDS: HYDROCODONE/APAP 10MG-325MG TAB PO PRN (22:02)
[2020-02-21] MEDS: ATORVASTATIN 20 MG TAB PO SCH (22:02)
[2020-02-22 00:14] VITALS: BP 118/71
[2020-02-22] MEDS: HYDROCODONE/APAP 10MG-325MG TAB PO PRN (01:57)
[2020-02-22 04:45] VITALS: BP 119/80
[2020-02-22 07:07] LABS: INR 2.73
[2020-02-22 08:00] VITALS: BP 132/80
[2020-02-22 08:30] VITALS: BP 135/80
[2020-02-22] MEDS: DOCUSATE SODIUM 100 MG CAP PO SCH (09:00)
[2020-02-22] MEDS: ASPIRIN 81 MG CHEW TAB PO SCH (09:22)
[2020-02-22] MEDS: METOPROLOL TARTRATE 25 MG TAB PO SCH (09:23)
[2020-02-22] MEDS ORDERED: WARFARIN SODIU2.5 MG PO (12:15)
[2020-02-22] MEDS ORDERED: METOPROLOL TART25 MG PO ×2 (12:18→12:20)
--- NOTE | 2020-02-22 12:28 | Discharge Summary ---
FINAL DIAGNOSIS: Bilateral pulmonary embolism with pulmonary infarct. SECONDARY DIAGNOSES: 1. Bilateral lower extremity deep venous thrombosis. 2. Acute kidney injury, resolved. 3. Positive troponin due to bilateral pulmonary embolism. 4. Morbid obesity. 5. Per report recent stroke with visual deficits. CONSULTANTS: Dr. Juan Pablo Hewitt, Pulmonology; Dr. Zamorano, Cardiology. PROCEDURES/STUDIES PERFORMED: 1. Echocardiogram, which was benign. 2. Chest CT. 3. Bilateral lower extremity venous Doppler. HISTORY: Per [facility] HOSPITAL COURSE: The patient was admitted with bilateral PE with pulmonary infarct. Given his overweight, Lovenox and novel oral anticoagulation having been steady in his weight. Therefore, heparin drip was started. Subsequently, Coumadin was started. Currently, the patient's Coumadin is therapeutic. I will start him now on 5 mg. The patient will follow up with his primary care doctor next week and check another INR. While in the hospital, the patient bumped his troponin and his creatinine, subsequently these are getting better. The patient was evaluated by Cardiology. His positive troponin was thought to be due to his PE. The patient was able to ambulate on room air and did not meet criteria for home oxygen. The patient understands that in 3 to 6 months when he is ready to come off Coumadin, that he will need a hematologic evaluation for possible hypercoagulable state and also a transesophageal echocardiogram from [facility] for possible connection between the right and left side of the heart. The patient was seen and examined today. It took 35 minutes total to discharge this patient. CONDITION ON DISCHARGE: Improved. DISCHARGE MEDICATIONS: Please see medication reconciliation form. MD SARAH Lee/LAUREEN /[id number] cc: [facility]
[2020-02-22 12:32] VITALS: BP 125/81
== END 2020-02-22 13:15 | disposition home or self-care (01) | DRG 280 ==
LOC: ER 19:38 → ERHOLD 22:02 → MED/SURG 23:16 → MED/SURG3 02-20 11:11
PROVIDERS: ADMIT Internal Medicine; ATTEND Internal Medicine
DX: I82.441 Acute embolism and thrombosis of right tibial vein (principal); I26.09 Other pulmonary embolism with acute cor pulmonale; I21.A1 Myocardial infarction type 2; J96.01 Acute respiratory failure with hypoxia; N17.9 Acute kidney failure, unspecified; Z68.43 Body mass index [BMI] 50.0-59.9, adult; I82.432 Acute embolism and thrombosis of left popliteal vein; I69.312 Visuospatial deficit and spatial neglect following cerebral infarction; E66.01 Morbid (severe) obesity due to excess calories; H81.10 Benign paroxysmal vertigo, unspecified ear; E78.5 Hyperlipidemia, unspecified; I10 Essential (primary) hypertension; Z88.1 Allergy status to other antibiotic agents; Z88.0 Allergy status to penicillin; Z88.8 Allergy status to other drugs, medicaments and biological substances
CPT/HCPCS: 36415; 71046; 71260; 80048; 80053; 80061; 81001; 82550; 82553; 83605; 83880; 84436; 84443; 84479; 84484; 85025; 85379; 85384; 85610; 85730; 86022; 87040; 93005; 93306; 93970; 94640; 99284; J1644; J1885; J1940; Q9967

== ENCOUNTER 2022-05-08 23:21 | Inpatient (IN) | payer OTHER ==
[~2022-05-08] VITALS: Ht 182.9 cm; Wt 190.5 kg
[~2022-05-08 23:21] MED LIST changes: +ASPIR 8181 MG PO; +ATORVASTATIN CA10 MG PO; +CLOPIDOGREL75 MG PO; +DIOVAN80 MG PO; +METOPROLOL TART25 MG PO; +NIFEDIPINE ER60 MG PO; +NIFEDIPINE10 MG PO; +WARFARIN SODIU2.5 MG PO
[2022-05-09] MEDS ORDERED: ACETAMINOPHEN 325 MG TAB PO ONE (00:45)
[2022-05-09] MEDS ORDERED: SODIUM CHLORIDE 0.9% 1000ML 1,000 ML IV ONE ×2 (00:45→03:30)
[2022-05-09] MEDS ORDERED: MEROPENEM 1 GM in SODIUM CHLORIDE 0.9% 100 ML IV ONE (00:45)
[2022-05-09] MEDS ORDERED: SODIUM CHLORIDE 0.9% 1000ML 1,000 ML IV SCH ×2 (00:45→02:45)
[2022-05-09 01:17] LABS: BASOPHILS % 0.2 % (0.0-1.0); EOSINOPHILS % 0.1 % (0.0-6.0); HEMATOCRIT 39.3 % (38.2-49.6); HEMOGLOBIN 12.7 g/dL (14.0-18.0); LYMPHOCYTES # (AUTO) 0.3 (1.0-3.2); LYMPHOCYTES % 1.8 % (18.0-39.1); MEAN CORPUSCULAR HEMOGLOBIN 29.5 pg (28-32); MEAN CORPUSCULAR HGB CONC 32.3 g/dL (31-35); MEAN CORPUSCULAR VOLUME 91.2 fL (81-99); MONOCYTES # (AUTO) 0.1 (0.2-0.8); MONOCYTES % 0.9 % (4.4-11.3); NEUTROPHILS # (AUTO) 15.1 (2.1-6.9); NEUTROPHILS % 96.4 % (38.7-80.0); PLATELET COUNT 199 x10e3/uL (140-360); RED BLOOD COUNT 4.31 x10e6/uL (4.3-5.7); RED CELL DISTRIBUTION WIDTH 15.1 % (11.7-14.4)
[2022-05-09 01:30] LABS: ALANINE AMINOTRANSFERASE 22 IU/L (0-55); ALBUMIN 3.3 g/dL (3.5-5.0); ALBUMIN/GLOBULIN RATIO 0.8 (0.8-2.0); ALKALINE PHOSPHATASE 93 IU/L (40-150); ANION GAP 17.2 mmol/L (8-16); BLOOD UREA NITROGEN 20 mg/dL (7-26); BUN/CREATININE RATIO 14 (6-25); CARBON DIOXIDE 20 mmol/L (22-29); CHLORIDE 101 mmol/L (98-107); CREATINE KINASE 69 IU/L (30-200); GLUCOSE 130 mg/dL (74-118); POTASSIUM 4.2 mmol/L (3.5-5.1); SODIUM 134 mmol/L (136-145)
[2022-05-09 02:55] LABS: CLARITY,URINE TURBID (CLEAR); COLOR,URINE YELLOW (YELLOW); LEUKOCYTE ESTERASE ,URINE LARGE (NEGATIVE); NITRITE,URINE NEGATIVE (NEGATIVE)
[2022-05-09 02:56] LABS: BACTERIA,URINE MANY /HPF; EPITHELIAL CELLS,URINE MANY /LPF; KETONES,URINE TRACE (NEGATIVE); PROTEIN,URINE DIPSTICK 2+ (NEGATIVE); RBC,URINE >50 /HPF (0-5); URINE UROBILINOGEN 0.2 mg/dL (0.2 - 1); WBC,URINE (MAN) >50 /HPF (0-5)
[2022-05-09] MEDS ORDERED: ONDANSETRON HCL INJ 2MG/ML 2ML 2 MG/ML VIAL IV PRN (03:00)
[2022-05-09] MEDS: ACETAMINOPHEN 325 MG TAB PO PRN ×2 (09:04→19:39)
[2022-05-09] MEDS: MEROPENEM 1 GM in SODIUM CHLORIDE 0.9% 100 ML IV SCH ×3 (09:30→22:10)
[2022-05-09] MEDS ORDERED: FLOMAX0.4 MG PO (13:29)
[2022-05-09 13:31] LABS: BASOPHILS % 0.3 % (0.0-1.0); HEMATOCRIT 35.6 % (38.2-49.6); HEMOGLOBIN 11.3 g/dL (14.0-18.0); LYMPHOCYTES # (AUTO) 0.3 (1.0-3.2); LYMPHOCYTES % 1.9 % (18.0-39.1); MEAN CORPUSCULAR HEMOGLOBIN 29.2 pg (28-32); MEAN CORPUSCULAR HGB CONC 31.7 g/dL (31-35); MONOCYTES # (AUTO) 0.6 (0.2-0.8); NEUTROPHILS # (AUTO) 14.4 (2.1-6.9); NEUTROPHILS % 93.2 % (38.7-80.0); PLATELET COUNT 175 x10e3/uL (140-360); RED BLOOD COUNT 3.87 x10e6/uL (4.3-5.7); RED CELL DISTRIBUTION WIDTH 15.6 % (11.7-14.4)
[2022-05-09 14:05] LABS: INR 1.07; PROTHROMBIN TIME 14.9 seconds (11.9-14.5)
[2022-05-09 14:10] LABS: ANION GAP 13.1 mmol/L (8-16); CALCIUM 7.6 mg/dL (8.4-10.2); CREATININE, SERUM 1.15 mg/dL (0.72-1.25); POTASSIUM 4.1 mmol/L (3.5-5.1)
[2022-05-09 15:44] VITALS: BP 131/56
[2022-05-09 16:44] VITALS: BP 131/56
[2022-05-09 16:47] VITALS: BP 131/56
[2022-05-09] MEDS: ENOXAPARIN SOD INJ 40 MG/0.4 ML SYR SC SCH (19:38)
[2022-05-09] MEDS ORDERED: VALSARTAN-HCTZ1 EAC1 PO (19:51)
[2022-05-09 20:00] VITALS: BP 146/72
[2022-05-09 21:00] VITALS: BP 146/72
[2022-05-10] VITALS (9 sets, daily range): BP systolic 108–166; BP diastolic 56–82
[2022-05-10] MEDS: MEROPENEM 1 GM in SODIUM CHLORIDE 0.9% 100 ML IV SCH ×3 (05:55→21:56)
[2022-05-10 06:03] LABS: ALBUMIN 2.5 g/dL (3.5-5.0); ALBUMIN/GLOBULIN RATIO 0.6 (0.8-2.0); ANION GAP 12.1 mmol/L (8-16); CALCIUM 7.9 mg/dL (8.4-10.2); CREATININE, SERUM 1.06 mg/dL (0.72-1.25); POTASSIUM 4.1 mmol/L (3.5-5.1)
[2022-05-10 06:22] LABS: % IRON SATURATION 12 % (15-50); IRON 32 ug/dL (65-175); TOTAL IRON BINDING CAPACITY 269 ug/dL (261-478); TRANSFERRIN 192 mg/dL (174-364)
[2022-05-10 06:55] LABS: BASOPHILS % 0.5 % (0.0-1.0); EOSINOPHILS % 0.3 % (0.0-6.0); HEMATOCRIT 35.4 % (38.2-49.6); HEMOGLOBIN 11.1 g/dL (14.0-18.0); LYMPHOCYTES # (AUTO) 0.5 (1.0-3.2); LYMPHOCYTES % 7.8 % (18.0-39.1); MEAN CORPUSCULAR HEMOGLOBIN 28.9 pg (28-32); MEAN CORPUSCULAR HGB CONC 31.4 g/dL (31-35); MEAN CORPUSCULAR VOLUME 92.2 fL (81-99); MONOCYTES # (AUTO) 0.7 (0.2-0.8); MONOCYTES % 12.7 % (4.4-11.3); NEUTROPHILS # (AUTO) 4.5 (2.1-6.9); PLATELET COUNT 145 x10e3/uL (140-360); RED BLOOD COUNT 3.84 x10e6/uL (4.3-5.7); RED CELL DISTRIBUTION WIDTH 15.6 % (11.7-14.4)
[2022-05-10] MEDS: ENOXAPARIN SOD INJ 40 MG/0.4 ML SYR SC SCH ×2 (08:40→20:20)
[2022-05-10] MEDS ORDERED: ONDANSETRON HCL 4 MG ORAL DISINTEGRATING TAB PO PRN (11:00)
[2022-05-10] MEDS ORDERED: IRON SUCROSE 100 MG in SODIUM CHLORIDE 0.9% 100 ML 100 ML IV SCH (11:00)
[2022-05-10] MEDS: VALSARTAN 160 MG TAB PO SCH (11:39)
[2022-05-10] MEDS: IRON SUCROSE 100 MG in SODIUM CHLORIDE 0.9% 100 ML IV SCH (12:05)
[2022-05-10] MEDS ORDERED: SODIUM CHLORIDE 0.9% 250ML 0 ML ONE (12:13)
[2022-05-10] MEDS: ACETAMINOPHEN 325 MG TAB PO PRN (18:31)
[2022-05-11 05:17] VITALS: BP 131/89
[2022-05-11] MEDS: ACETAMINOPHEN 325 MG TAB PO PRN (05:25)
[2022-05-11] MEDS: MEROPENEM 1 GM in SODIUM CHLORIDE 0.9% 100 ML IV SCH (05:30)
[2022-05-11 08:00] VITALS: BP 152/86
[2022-05-11 08:42] VITALS: BP 152/86
[2022-05-11] MEDS: VALSARTAN 160 MG TAB PO SCH (09:00)
[2022-05-11] MEDS: ENOXAPARIN SOD INJ 40 MG/0.4 ML SYR SC SCH (09:00)
[2022-05-11] MEDS ORDERED: TRIMETHOPRIM/SULFAMETHOXAZOLE 160-800 MG TAB PO SCH (11:00)
[2022-05-11] MEDS: IRON SUCROSE 100 MG in SODIUM CHLORIDE 0.9% 100 ML IV SCH (11:13)
[2022-05-11 12:00] VITALS: BP 149/84
[2022-05-11] MEDS ORDERED: Trimethoprim/Sulfamethoxazole PO (14:14)
== END 2022-05-11 15:43 | disposition home or self-care (01) | DRG 872 ==
LOC: ER 05-09 00:35 → ERHOLD 05-09 03:08 → MED/SURG2 05-09 14:30
PROVIDERS: ADMIT Internal Medicine; ATTEND Internal Medicine
DX: A41.59 Other Gram-negative sepsis (principal); N17.9 Acute kidney failure, unspecified; Z68.43 Body mass index [BMI] 50.0-59.9, adult; N39.0 Urinary tract infection, site not specified; E66.01 Morbid (severe) obesity due to excess calories; Z86.711 Personal history of pulmonary embolism; Z79.01 Long term (current) use of anticoagulants; I10 Essential (primary) hypertension; D50.9 Iron deficiency anemia, unspecified; Z88.1 Allergy status to other antibiotic agents; Z88.0 Allergy status to penicillin
CPT/HCPCS: 36415; 71045; 80048; 80053; 81001; 82550; 82553; 83540; 83605; 84466; 84484; 85025; 85610; 87040; 87071; 87086; 87186; 87205; 93005; 94799; 99284; J1650; J1756; J2185; J7030; J7050

== ENCOUNTER 2022-06-30 08:46 | Emergency (ER) | payer OTHER ==
[~2022-06-30] VITALS: Ht 210.8 cm; Wt 190.5 kg
[~2022-06-30 08:46] MED LIST changes: +FLOMAX0.4 MG PO; +Trimethoprim/Sulfamethoxazole PO; +VALSARTAN-HCTZ1 EAC1 PO
[2022-06-30] MEDS ORDERED: SODIUM CHLORIDE 0.9% 1000ML 1,000 ML IV ONE (09:15)
[2022-06-30] MEDS ORDERED: KETOROLAC TROMETHAMINE 30 MG/ML VIAL IV STA (09:30)
[2022-06-30] MEDS ORDERED: ONDANSETRON HCL INJ 2MG/ML 2ML 2 MG/ML VIAL IV STA (09:30)
[2022-06-30 09:43] LABS: BASOPHILS % 0.2 % (0.0-1.0); EOSINOPHILS % 0.1 % (0.0-6.0); HEMOGLOBIN 12.4 g/dL (14.0-18.0); LYMPHOCYTES % 7.8 % (18.0-39.1); MEAN CORPUSCULAR HEMOGLOBIN 29.8 pg (28-32); MEAN CORPUSCULAR HGB CONC 34.4 g/dL (31-35); MEAN CORPUSCULAR VOLUME 86.5 fL (81-99); MONOCYTES # (AUTO) 0.8 (0.2-0.8); NEUTROPHILS # (AUTO) 10.6 (2.1-6.9); NEUTROPHILS % 85.3 % (38.7-80.0); PLATELET COUNT 241 x10e3/uL (140-360); RED BLOOD COUNT 4.16 x10e6/uL (4.3-5.7); RED CELL DISTRIBUTION WIDTH 15.6 % (11.7-14.4)
[2022-06-30 09:57] LABS: CLARITY,URINE CLOUDY (CLEAR); COLOR,URINE YELLOW (YELLOW); LEUKOCYTE ESTERASE ,URINE SMALL (NEGATIVE); NITRITE,URINE POSITIVE (NEGATIVE)
[2022-06-30 09:58] LABS: KETONES,URINE NEGATIVE (NEGATIVE); PROTEIN,URINE DIPSTICK 1+ (NEGATIVE); RBC,URINE 0-5 /HPF (0-5); URINE UROBILINOGEN 0.2 mg/dL (0.2 - 1)
[2022-06-30 09:59] LABS: BACTERIA,URINE MANY /HPF; WBC,URINE (MAN) >50 /HPF (0-5)
[2022-06-30 10:00] LABS: EPITHELIAL CELLS,URINE FEW /LPF
[2022-06-30 10:13] LABS: ALBUMIN 3.3 g/dL (3.5-5.0); ALBUMIN/GLOBULIN RATIO 0.8 (0.8-2.0); ANION GAP 16.2 mmol/L (8-16); CALCIUM 9.3 mg/dL (8.4-10.2); CREATININE, SERUM 1.13 mg/dL (0.72-1.25); POTASSIUM 4.2 mmol/L (3.5-5.1)
[2022-06-30 10:23] LABS: INR 0.87; PROTHROMBIN TIME 12.7 seconds (11.9-14.5)
[2022-06-30 10:24] LABS: PARTIAL THROMBOPLASTIN TIME 28.2 seconds (23.8-35.5)
[2022-06-30] MEDS ORDERED: CEFTRIAXONE 1 GM VIAL IV ONE (11:15)
[2022-06-30] MEDS ORDERED: BACTRIM DS TAB1 EACH PO (13:57)
[2022-06-30 14:12] VITALS: BP 138/74
== END 2022-06-30 14:16 | disposition home or self-care (01) ==
LOC: ER 08:57
DX: R30.0 Dysuria (principal); N39.0 Urinary tract infection, site not specified; G47.33 Obstructive sleep apnea (adult) (pediatric); Z86.73 Personal history of transient ischemic attack (TIA), and cerebral infarction without residual deficits; Z87.442 Personal history of urinary calculi
CPT/HCPCS: 36415; 71045; 80053; 81001; 83605; 85025; 85610; 85730; 87086; 87186; 99284; J1885; J2405; J7030

== ENCOUNTER 2022-08-06 14:32 | Inpatient (IN) | payer OTHER ==
[~2022-08-06] VITALS: Ht 182.9 cm; Wt 190.5 kg
[~2022-08-06 14:32] MED LIST changes: +BACTRIM DS TAB1 EACH PO
[2022-08-06 15:05] LABS: BASOPHILS % 0.2 % (0.0-1.0); EOSINOPHILS % 0.1 % (0.0-6.0); HEMATOCRIT 37.2 % (38.2-49.6); LYMPHOCYTES # (AUTO) 0.6 (1.0-3.2); MEAN CORPUSCULAR HEMOGLOBIN 29.8 pg (28-32); MEAN CORPUSCULAR HGB CONC 32.3 g/dL (31-35); MEAN CORPUSCULAR VOLUME 92.3 fL (81-99); MONOCYTES # (AUTO) 1.3 (0.2-0.8); MONOCYTES % 9.1 % (4.4-11.3); NEUTROPHILS # (AUTO) 11.9 (2.1-6.9); PLATELET COUNT 169 x10e3/uL (140-360); RED BLOOD COUNT 4.03 x10e6/uL (4.3-5.7); RED CELL DISTRIBUTION WIDTH 14.7 % (11.7-14.4)
[2022-08-06 15:08] LABS: CLARITY,URINE CLOUDY (CLEAR); COLOR,URINE AMBER (YELLOW); KETONES,URINE TRACE (NEGATIVE); LEUKOCYTE ESTERASE ,URINE SMALL (NEGATIVE); NITRITE,URINE POSITIVE (NEGATIVE); PROTEIN,URINE DIPSTICK 2+ (NEGATIVE); URINE UROBILINOGEN 1 mg/dL (0.2 - 1)
[2022-08-06 15:19] LABS: BACTERIA,URINE MODERATE /HPF; EPITHELIAL CELLS,URINE FEW /LPF; RBC,URINE 0-5 /HPF (0-5); WBC,URINE (MAN) 21-50 /HPF (0-5)
[2022-08-06 15:22] LABS: ALBUMIN 2.9 g/dL (3.5-5.0); ALBUMIN/GLOBULIN RATIO 0.7 (0.8-2.0); ANION GAP 15.7 mmol/L (8-16); CALCIUM 9.2 mg/dL (8.4-10.2); CREATININE, SERUM 1.14 mg/dL (0.72-1.25); POTASSIUM 3.7 mmol/L (3.5-5.1)
[2022-08-06] MEDS: MEROPENEM 1 GM in SODIUM CHLORIDE 0.9% 100 ML IV SCH ×2 (15:30→20:01)
[2022-08-06] MEDS: SODIUM CHLORIDE FLUSH 10 ML SYR INJ PRN ×2 (16:09→16:19)
[2022-08-06 18:23] VITALS: BP 136/83
[2022-08-06] MEDS ORDERED: WARFARIN SODIUM1 MG PO (19:47)
[2022-08-06] MEDS: HYDROCODONE/APAP 5MG-325MG TAB PO PRN (19:51)
[2022-08-06 20:03] VITALS: BP 136/83
[2022-08-06 20:04] VITALS: BP 136/83
[2022-08-06 20:08] VITALS: BP 136/83
[2022-08-07] VITALS (7 sets, daily range): BP systolic 115–153; BP diastolic 64–83
[2022-08-07] MEDS: HYDROCODONE/APAP 5MG-325MG TAB PO PRN (03:48)
[2022-08-07] MEDS: MEROPENEM 1 GM in SODIUM CHLORIDE 0.9% 100 ML IV SCH ×3 (05:35→22:07)
[2022-08-07 06:47] LABS: BASOPHILS % 0.3 % (0.0-1.0); EOSINOPHILS # (AUTO) 0.2 (0.0-0.4); EOSINOPHILS % 2.8 % (0.0-6.0); HEMATOCRIT 31.2 % (38.2-49.6); HEMOGLOBIN 10.4 g/dL (14.0-18.0); LYMPHOCYTES # (AUTO) 0.8 (1.0-3.2); LYMPHOCYTES % 12.5 % (18.0-39.1); MEAN CORPUSCULAR HEMOGLOBIN 30.1 pg (28-32); MEAN CORPUSCULAR HGB CONC 33.3 g/dL (31-35); MEAN CORPUSCULAR VOLUME 90.2 fL (81-99); MONOCYTES # (AUTO) 1.2 (0.2-0.8); MONOCYTES % 18.2 % (4.4-11.3); NEUTROPHILS # (AUTO) 4.2 (2.1-6.9); NEUTROPHILS % 65.7 % (38.7-80.0); PLATELET COUNT 132 x10e3/uL (140-360); RED BLOOD COUNT 3.46 x10e6/uL (4.3-5.7); RED CELL DISTRIBUTION WIDTH 15.2 % (11.7-14.4)
[2022-08-07 07:50] LABS: ALBUMIN 2.4 g/dL (3.5-5.0); ALBUMIN/GLOBULIN RATIO 0.6 (0.8-2.0); ANION GAP 13.6 mmol/L (8-16); CALCIUM 8.5 mg/dL (8.4-10.2); CREATININE, SERUM 0.91 mg/dL (0.72-1.25); POTASSIUM 3.6 mmol/L (3.5-5.1)
[2022-08-07] MEDS ORDERED: ACETAMINOPHEN 325 MG TAB PO PRN (14:15)
[2022-08-07] MEDS ORDERED: SODIUM CHLORIDE 0.9% 250ML 250 ML ONE (14:20)
[2022-08-07] MEDS: HYDRO PO SCH (16:55)
[2022-08-07] MEDS: ENOXAPARIN SOD INJ 40 MG/0.4 ML SYR SC SCH (16:56)
[2022-08-07] MEDS: VALSARTAN 160 MG TAB PO SCH (16:56)
[2022-08-07] MEDS: ATORVASTATIN 40 MG TAB PO SCH (22:07)
[2022-08-08] VITALS (8 sets, daily range): BP systolic 126–159; BP diastolic 67–78
[2022-08-08 06:19] LABS: BASOPHILS % 0.6 % (0.0-1.0); EOSINOPHILS # (AUTO) 0.2 (0.0-0.4); EOSINOPHILS % 2.1 % (0.0-6.0); HEMATOCRIT 35.5 % (38.2-49.6); LYMPHOCYTES # (AUTO) 1.6 (1.0-3.2); LYMPHOCYTES % 22.8 % (18.0-39.1); MEAN CORPUSCULAR HGB CONC 33.8 g/dL (31-35); MEAN CORPUSCULAR VOLUME 88.8 fL (81-99); MONOCYTES # (AUTO) 1.2 (0.2-0.8); NEUTROPHILS % 56.6 % (38.7-80.0); PLATELET COUNT 174 x10e3/uL (140-360); RED CELL DISTRIBUTION WIDTH 14.9 % (11.7-14.4)
[2022-08-08] MEDS: MEROPENEM 1 GM in SODIUM CHLORIDE 0.9% 100 ML IV SCH ×3 (06:28→21:55)
[2022-08-08 06:43] LABS: ANION GAP 16.8 mmol/L (8-16); CALCIUM 8.9 mg/dL (8.4-10.2); CREATININE, SERUM 1.1 mg/dL (0.72-1.25); POTASSIUM 3.8 mmol/L (3.5-5.1)
[2022-08-08] MEDS: VALSARTAN 160 MG TAB PO SCH (08:42)
[2022-08-08] MEDS: HYDRO PO SCH (08:43)
[2022-08-08] MEDS: ASPIRIN 81 MG CHEW TAB PO SCH (08:43)
[2022-08-08] MEDS: TAMSULOSIN HCL 0.4 MG CAP PO SCH ×2 (08:44→09:00)
[2022-08-08] MEDS: ENOXAPARIN SOD INJ 40 MG/0.4 ML SYR SC SCH (17:02)
[2022-08-08] MEDS: ATORVASTATIN 40 MG TAB PO SCH (21:55)
[2022-08-09] VITALS: BP 127/52
[2022-08-09 04:00] VITALS: BP 126/68
[2022-08-09] MEDS: MEROPENEM 1 GM in SODIUM CHLORIDE 0.9% 100 ML IV SCH (05:22)
[2022-08-09 08:44] VITALS: BP 125/61
[2022-08-09] MEDS: HYDRO PO SCH (09:22)
[2022-08-09] MEDS: TAMSULOSIN HCL 0.4 MG CAP PO SCH (09:23)
[2022-08-09] MEDS: ASPIRIN 81 MG CHEW TAB PO SCH (09:23)
[2022-08-09] MEDS: VALSARTAN 160 MG TAB PO SCH (09:24)
[2022-08-09 09:30] VITALS: BP 125/61
[2022-08-09] MEDS ORDERED: LEVOFLOXACIN250 MG PO (10:59)
[2022-08-09 12:03] VITALS: BP 113/62
[2022-08-09 12:04] VITALS: BP 113/62
[2022-08-09] MEDS ORDERED: LEVOFLOXACIN 500 MG TAB PO SCH (12:30)
== END 2022-08-09 14:38 | disposition home or self-care (01) | DRG 690 ==
LOC: ER 14:35 → ERHOLD 15:28 → MED/SURG2 18:17
PROVIDERS: ADMIT Internal Medicine; ATTEND Internal Medicine
DX: N39.0 Urinary tract infection, site not specified (principal); Z68.43 Body mass index [BMI] 50.0-59.9, adult; Z16.24 Resistance to multiple antibiotics; B96.1 Klebsiella pneumoniae [K. pneumoniae] as the cause of diseases classified elsewhere; I10 Essential (primary) hypertension; D69.6 Thrombocytopenia, unspecified; E66.01 Morbid (severe) obesity due to excess calories; D50.9 Iron deficiency anemia, unspecified; Z86.711 Personal history of pulmonary embolism; Z79.01 Long term (current) use of anticoagulants; E78.5 Hyperlipidemia, unspecified; Z87.440 Personal history of urinary (tract) infections
CPT/HCPCS: 0223U; 36415; 80048; 80053; 81001; 82948; 83540; 83605; 84466; 85025; 87086; 87186; 99284; J1650; J2185; J7050